=== PATIENT | female | born 1975 | race African-American/Black ===

== ENCOUNTER 2021-04-11 06:52 | Emergency (ER) | payer MEDICAID, OTHER ==
[2021-04-11] MEDS ORDERED: Sodium Chloride 0.9% 10 ML Syringe FLUSH PRN (07:53)
[2021-04-11] MEDS ORDERED: Ketorolac 30 MG/ML SDV IVPUSH STA (07:55)
[2021-04-11] MEDS ORDERED: Ondansetron 4 MG/2 ML SDV IVPUSH STA (07:55)
[2021-04-11] MEDS ORDERED: Sodium Chloride 0.9% 1,000 ML IV SCH (08:00)
[2021-04-11] MEDS ORDERED: Iopamidol 755 Mg/ML 100 ML Bottle IV ONE (08:26)
[2021-04-11] MEDS ORDERED: Labetalol 20 MG/4 ML Syringe IVPUSH ONE (09:32)
[2021-04-11] MEDS ORDERED: Morphine 4 MG/ML VIAL IVPUSH STA (09:32)
[2021-04-11] MEDS ORDERED: Prochlorperazine 10 MG/2 ML SDV IVPUSH STA (09:43)
== END 2021-04-11 10:45 | disposition home or self-care (01) ==
LOC: FB.ED 06:52
DX: K57.32 Diverticulitis of large intestine without perforation or abscess without bleeding (principal); I10 Essential (primary) hypertension; B20 Human immunodeficiency virus [HIV] disease; E66.9 Obesity, unspecified; Z68.35 Body mass index [BMI] 35.0-35.9, adult; Z72.0 Tobacco use; Z91.048 Other nonmedicinal substance allergy status; Z79.899 Other long term (current) drug therapy
CPT/HCPCS: 36415; 71045; 74177; 80053; 81001; 82150; 83690; 85025; 96374; 96375; 99284; J0780; J1885; J2270; J2405; J3490; J7030; Q9967

== ENCOUNTER 2022-04-25 16:42 | Emergency (ER) | payer BC, MEDICAID ==
[2022-04-25] MEDS ORDERED: Sodium Chloride 0.9% 10 ML Syringe FLUSH PRN (17:00)
[2022-04-25] MEDS ORDERED: Amoxicillin/Clavulanate K 875-125 MG Tab PO ONE (17:47)
[2022-04-25] MEDS ORDERED: Meclizine 25 MG Tab PO STA (17:47)
[2022-04-25] MEDS ORDERED: Ondansetron 4 MG Tab.DIS PO ONE (17:47)
== END 2022-04-25 18:37 | disposition home or self-care (01) ==
LOC: FB.ED 16:42
DX: H66.93 Otitis media, unspecified, bilateral (principal); H81.13 Benign paroxysmal vertigo, bilateral; I10 Essential (primary) hypertension; E66.9 Obesity, unspecified; Z68.43 Body mass index [BMI] 50.0-59.9, adult; Z91.048 Other nonmedicinal substance allergy status; Z79.899 Other long term (current) drug therapy
CPT/HCPCS: 71045; 83880; 84484; 85379; 85610; 85730; 93005; 99284; A9270; Q0162